=== PATIENT | female | born 1945 | race Two or more races ===

== ENCOUNTER → 2020-06-30 | Outpatient (CLI) | payer MEDICARE ==
--- NOTE | 2020-06-30 15:17 | KCIC ---
Exam: US DPLX ARTR EXTREM LOWER BILAT History: Leg pain Comparison: None. Technique: Grayscale, color, and spectral Doppler ultrasound images of the lower extremity arteries. Findings: No visualized plaque or calcification seen. Peak systolic velocities (cm/s) and waveforms in the lower extremities: Right: Common femoral artery: 193, triphasic Profunda femoris artery: 98, triphasic Proximal superficial femoral artery: 120, biphasic Mid superficial femoral artery: 84, biphasic Distal superficial femoral artery: 105, biphasic Popliteal artery: 56, biphasic Posterior tibial artery: 66 proximally, 88 distally, biphasic Peroneal artery: 96, biphasic Anterior tibial artery: 58, biphasic Dorsalis pedis artery: 68, biphasic Left: Common femoral artery: 139, biphasic Profunda femoris artery: 95, biphasic Proximal superficial femoral artery: 123, biphasic Mid superficial femoral artery: 99, biphasic Distal superficial femoral artery: 97, biphasic Popliteal artery: 92, biphasic Posterior tibial artery: 34 proximally, 108 distally, biphasic Dorsalis pedis artery: 104, biphasic Impression: No evidence of peripheral vascular disease in the lower extremities. Electronically signed by: Katty Borja MD (06/30/2020 3:14 PM) [id number]
== END ==
LOC: KCIC US 09:05
PROVIDERS: ATTEND Family Medicine
DX: M79.604 Pain in right leg (principal); M79.605 Pain in left leg
CPT/HCPCS: 93925

== ENCOUNTER → 2020-07-21 | Outpatient (CLI) | payer MEDICARE ==
--- NOTE | 2020-07-21 14:18 | KCIC ---
MR LUMBAR SPINE WO [id number] Date: 07/21/2020 9:45 AM Indication: LUMBAR RADICULOPATHY. Back pain and BLE pain and numbness. Comparison: None. Technique: Multi-planar multi-weighted magnetic resonance imaging of the lumbar spine was performed w ithout intravenous contrast using the standard lumbar spine protocol. FINDINGS: The lumbar spine is normally aligned. No acute fracture. Mild multilevel degenerative disc desiccatio n and disc height loss. Scattered vertebral body hemangiomas. The conus terminates at a normal level. No abnormal signal is seen within the visualized distal spina l cord. No clumping of intrathecal nerve roots. No soft tissue abnormality in the visualized abdomen or pelvis. T12-L1: No disc bulge. No facet arthropathy. No significant spinal stenosis or neural foraminal narro wing. L1-L2: No disc bulge. No facet arthropathy. No significant spinal stenosis or neural foraminal narrow ing. L2-L3: Disc bulge. Mild facet arthropathy. No significant spinal stenosis. Mild neural foraminal narr owing. L3-L4: Disc bulge. Mild facet arthropathy. Ligamentum flavum thickening. Mild spinal stenosis. Mild b ilateral neural foraminal narrowing. L4-L5: Disc bulge. Mild facet arthropathy. Ligamentum flavum thickening. Moderate to severe spinal st enosis and lateral recess. Mild right and moderate left neural foraminal narrowing. L5-S1: Disc bulge. Moderate facet arthropathy. Ligamentum flavum thickening. Mild spinal stenosis and lateral recess narrowing. Severe right and mild left neural foraminal narrowing. IMPRESSION: Moderate to severe spinal canal stenosis at L4-5. Degenerative changes at the remaining levels as det anisha above. Electronically signed by: Antonio Eric MD (07/21/2020 2:16 PM) [id number]
== END ==
LOC: KCIC MRI 09:00
PROVIDERS: ATTEND Family Medicine
DX: M47.26 Other spondylosis with radiculopathy, lumbar region (principal); M47.818 Spondylosis without myelopathy or radiculopathy, sacral and sacrococcygeal region; M48.07 Spinal stenosis, lumbosacral region
CPT/HCPCS: 72148

== ENCOUNTER → 2020-08-16 | Outpatient (CLI) | payer MEDICARE ==
[~2020-08-16] MED LIST: IOHEXOL 180 MG/ML 10 ML VIAL. ONE; SIMV20TA18 PO; methylPREDNISolone ACETATE 40 MG/ML VIAL. ONE; methylPREDNISolone ACETATE 80 MG/ML VIAL. ONE
--- NOTE | 2020-08-16 10:16 | PDOC1 ---
INITIAL PAIN CONSULT DATE OF SERVICE: DOS: DATE: 08/16/20 TIME: 10:10 CHIEF COMPLAINT: Chief Complaint: Low back and bilateral lower extremity pain HISTORY OF PRESENT ILLNESS: 74-year-old female presents with history of pain low back bilateral lower extremities for many years worse over the past 6 months or so not the result of any specific injury or accident that she is aware but getting worse in the low back bilateral lower extremities posterior gluteus posterior thighs anterior thighs lateral thighs medial thighs posterior calves anterior calf into the feet with cold sensation in the feet as well specially on the left side patient reports stiffness in the leg especially on the right side patient reports no specific injury or accident again has been coming up over time getting worse. Patient describes pain is constant sharp stabbing in the back throbbing and shooting in the lower extremities intermittent with intensity but always present tingling and numbness in the feet and legs as well radiating bilaterally right essentially equal to left patient reported aching and cold as well. Patient has been doing some stretching and strength exercises on her own also taking ibuprofen and Tylenol ibuprofen does help and only for about an hour to 2 hours when she takes it. Patient reports no loss of motor function no bowel or bladder incontinence patient reports it does awaken her from sleep multiple times throughout the night does not affect her bowel or bladder control and does affect her ability to walk and she is not use any assistive devices however to ambulate. Patient rates her disability rating 0-10 10 being the worst is a 7-9 on family home responsibilities 5-6 and recreation 6 with social activity occupation 4-5 with self-care and 1 with life support activities. Patient did have MRI scan lumbar spine July 21, 2020 showing moderate to severe spinal canal stenosis at L4-5 degenerative changes at L3 445 and 5 S1 with disc bulge moderate to severe spinal stenosis mild bilateral neuroforaminal narrowing at L3-4 mild stenosis at L5-S1. PAST MEDICAL HISTORY: PMH: Arthritis PREVIOUS SURGERIES: Past Surgical Hx: Tubal ligation CURRENT MEDICATIONS: Current Meds: Active Scripts Medications Dose Route/Sig Max Daily Dose Days Date Category Simvastatin 20 Mg Tablet 1 Tab PO QHS 08/16/20 Reported FAMILY HISTORY: Family Hx: No major medical problems or conditions that she is aware of SOCIAL HISTORY: Social Hx: Patient drinks alcohol maybe once or twice a week does not smoke does not use any illegal illicit recreational drugs is lives with her spouse lives locally in [facility] reports she is currently retired. REVIEW OF SYSTEMS: ROS: Positive for those items mentioned in history of present illness, all systems are reviewed, otherwise negative ,and are complete full and well-documented on patient's chart. PHYSICAL EXAM: VS: Blood pressure is 160/93 pulse 111 respirations 18 temperature 97.8 F height is 5 feet 4 inches weight is 155 pounds PE: PHYSICAL EXAMINATION: GENERAL: The patient is awake, alert, oriented, appropriate, very pleasant demeanor HEENT: Shows normocephalic, atraumatic. Extraocular movements are intact and symmetrical. Oral cavity: Mucous membranes moist and pink. NECK: Shows anterior throat supple without palpable lymphadenopathy noted. Swallow reflex symmetrical. CHEST: Shows normal on inspection. Breath sounds are clear bilaterally, distant but no rales rhonchi wheezes auscultated. HEART: Shows S1, S2 clear. No murmurs auscultated. ABDOMEN: Soft, nontender, nondistended, obese. No palpable organomegaly is noted. No rebound or guarding demonstrated. BACK: Shows spine grossly in the midline. Normal-appearing cervical lordotic curvature. There is increased thoracic kyphosis, some minor flattening of the lumbar lordotic curvature. No previous surgical scarring noted. Lumbar paraspinous muscles show symmetrical on inspection, on palpation shows some moderate tenderness diffusely throughout the upper, middle and lower distribution of the paraspinous muscles bilaterally and also into the lower thoracic paraspinous musculature, firm and tender, but without specific trigger points, without radiation of pain. The patient has good rotational motion of the lumbar spine, both laterally as well as extension and flexion without significant difficulty. No tenderness over the spinous processes, sacrum or sacroiliac regions. EXTREMITIES: Lower extremities show deep tendon reflexes 1+ in the patellar and tendo calcaneus tendons. Motor exam is 4 on a scale of 5 with right dorsiflexion, extension, quadriceps and hamstring flexion and 4/5 on the left. Peripheral pulses are 1 posterior tibial. No peripheral edema is noted bilaterally. Lower extremities are warm and dry to touch, equal in color and appearance. Straight leg raise noted to be positive bilaterally approximately 40 degrees decreased with knee flexion. Gaenslen's and Prosper's maneuvers are negative bilaterally. The patient is able to stand, stand on toes without significant difficulty or loss of balance walks with a slight normal-appearing gait without any specific favoring of the right or left lower extremity for short distance in the office today, not use any assistive devices such as canes or walkers to ambulate. SKIN: Shows warm and dry, good turgor. No edema. No sores, rashes or bruising throughout. IMPRESSION: Impression: 74-year-old female with long history low back bilateral lower extremity pain worse over the past 6 months or so. MRI scan lumbar spine as noted History of arthritis Plan: Options were discussed with the patient including conservative medical management physical therapies and interventional techniques. Patient would like to pursue interventional techniques we discussed a lumbar epidural steroid injection using description as well as anatomical models described procedure. Risks were discussed including but not limited to: Bleeding, infection, possibility of epidural hematoma and subsequent neurological compromise, dural puncture, headaches, spinal cord and/or nerve damage, side effects of steroid medication, and poor results regarding pain control. Patient understands and wished to proceed. Patient will return to the clinic in approximate 2 weeks for follow-up, was counseled as return appointment activity level and side effects to be aware of. Procedure is lumbar epidural steroid injection under local anesthetic using sterile prep and drape at the L4-5 level using C-arm fluoroscopic guidance in both AP and lateral views medications injected is 120 mg Depo-Medrol + 10 mL preservative-free normal saline and 2 mL contrast- condition at discharge is stable patient tolerated procedure well had no complications. HEATHER MCCARTHY MD August 16, 2020 10:16
== END | disposition home or self-care (01) ==
LOC: PNCL 08:25
PROVIDERS: ATTEND Anesthesiology
DX: M54.5 Low back pain (principal); M79.605 Pain in left leg; M79.604 Pain in right leg; M19.90 Unspecified osteoarthritis, unspecified site; Z98.51 Tubal ligation status; Z98.890 Other specified postprocedural states
CPT/HCPCS: 62323; J1030; J1040; Q9965

== ENCOUNTER → 2020-08-30 | Outpatient (CLI) | payer MEDICARE ==
--- NOTE | 2020-08-30 10:34 | PDOC ---
Progress Note - Pain Clinic Date of Service: DOS: DATE: 08/30/20 TIME: 10:32 Diagnosis: Dx: Lumbar radiculopathy with lumbar degenerative disease and lumbar stenosis History or Present Illness: HPI: 74-year-old female returns to follow-up status post lumbar epidural steroid injection x1. Patient reports about 80% improvement for the first few weeks pain returning now in the low back 1 in the right lower extremity in the posterior gluteus lateral thigh anterior thigh medial thigh but much more tolerable patient reports he is sleeping much better at night now which is a been a big relief for her as she has been was not getting much sleep previously. Patient reports her pain is a 9 on scale 10 is worse over the past week 8 on average 8 its least is an 8 today patient describes as tingling and aching on and off in intensity again better with sitting or laying down worse with walking and standing. Patient reports no new motor or sensory deficits no new bowel or bladder incontinence. Physical Exam: VS: Blood pressure is 154/84 pulse 103 respirations 18 temperature 98.4 F height is 5 foot 4 inches weight is 154 pounds PE: PHYSICAL EXAMINATION: GENERAL: The patient is awake, alert, oriented, appropriate, very pleasant demea nor HEENT: Shows normocephalic, atraumatic. Extraocular movements are intact and symmetrical. Oral cavity: Mucous membranes moist and pink. NECK: Shows anterior throat supple without palpable lymphadenopathy noted. Swallow reflex symmetrical. CHEST: Shows normal on inspection. Breath sounds are clear bilaterally. HEART: Shows S1, S2 clear. No murmurs auscultated. ABDOMEN: Soft, nontender, nondistended. No palpable organomegaly is noted. No rebound or guarding demonstrated. BACK: Shows spine grossly in the midline. Normal-appearing cervical lordotic curvature. There is slightly increased thoracic kyphosis, some flattening of the lumbar lordotic curvature. Lumbar paraspinous muscles show symmetrical on inspection, on palpation shows some moderate tenderness diffusely throughout the upper, middle and lower distribution of the paraspinous muscles without specific trigger points, without radiation of pain. The patient has good rotational motion of the lumbar spine, both laterally as well as extension and flexion without significant difficulty. No tenderness over the spinous processes, sacrum or sacroiliac regions. EXTREMITIES: Lower extremities show deep tendon reflexes 1 in the patellar and tendo calcaneus tendons. Motor exam is 4 on a scale of 5 with right dorsiflexion, extension, quadriceps and hamstring flexion and 4/5 on the left. Peripheral pulses are 1+ posterior tibial. No peripheral edema is noted bilaterally. Lower extremities are warm and dry to touch, equal in color and appearance. SKIN: Shows warm and dry, good turgor. No edema. No sores, rashes or bruising throughout. Procedure: Procedure: Options discussed with patient. Patient chart was reviewed as her current medication regimen updated current review of systems updated today as well. We will proceed with a second in the series lumbar epidural steroid traction stable fluoroscopic guidance. Risks were discussed including but not limited to: Bleeding, infection, possibility of epidural hematoma and subsequent neurological compromise, dural puncture, headaches, spinal cord and/or nerve damage, side effects of steroid medication, and poor results regarding pain control. Patient understands and wished to proceed. Patient return to clinic in approximate 2 weeks for follow-up, was counseled as return appointment activity level and side effects to be aware of. Medication Injected: Med Injected: Procedure is lumbar epidural steroid injection under local anesthetic using moe rile prep and drape at the L4-5 level using C-arm fluoroscopic guidance in both AP and lateral views medications injected is 120 mg Depo-Medrol +10mL preservative-free normal saline and 2 mL contrast- condition at discharge is stable patient tolerated procedure well had no complications. Condition at Discharge: Condition at Discharge: Condition at discharge stable, patient alert procedure well and had no complications. HEATHER MCCARTHY MD August 30, 2020 10:34
--- NOTE | 2020-08-30 10:35 | PDOC4 ---
PROCEDURE Procedure Patient was consented for lumbar epidural steroid injection. Risks were dis cussed including but not limited to: Bleeding, infection, possibility of epidural hematoma and subsequent neurological compromise, dural puncture, headaches, spinal cord and/or nerve damage, side effects of steroid medication, and poor results regarding pain control. Patient understands and wished to proceed. Procedure is lumbar epidural steroid injection under local anesthetic using sterile prep and drape at the L4-5 level using C-arm fluoroscopic guidance in both AP and lateral views medications injected is 120 mg Depo-Medrol +10mL preservative-free normal saline and 2 mL contrast- condition at discharge is stable patient tolerated procedure well had no complications. HEATHER MCCARTHY MD August 30, 2020 10:34
== END | disposition home or self-care (01) ==
LOC: PNCL 09:34
PROVIDERS: ATTEND Anesthesiology
DX: M51.16 Intervertebral disc disorders with radiculopathy, lumbar region (principal); M48.061 Spinal stenosis, lumbar region without neurogenic claudication; Z79.899 Other long term (current) drug therapy
CPT/HCPCS: 62323; J1030; J1040; Q9965

== ENCOUNTER → 2020-09-13 | Outpatient (CLI) | payer MEDICARE ==
--- NOTE | 2020-09-13 10:53 | PDOC ---
Progress Note - Pain Clinic Date of Service: DOS: DATE: 09/13/20 TIME: 10:51 Diagnosis: Dx: Lumbar radiculopathy with lumbar degenerative disc disease and lumbar spinal stenosis History or Present Illness: HPI: 74-year-old female returns for follow-up status post lumbar epidural steroid injections x2. Patient reports about 80% improvement after the first injection about 50% provement after the last injection still some pain in the low back and into the right greater than left lower extremity but present bilaterally in the posterior gluteus lateral thighs anterior thighs medial thighs and medial calves patient reports a 9 on scale 10 is worse over the past week 7 on average/and is a 7 today patient describes the pain as tight and cramping in the low back radiating shooting in the leg. Patient reports no new motor or sensory deficits no new bowel or bladder incontinence or other complaints. Physical Exam: VS: Blood pressure is 149/83 pulse 105 respirations 18 temperature is 98.0 F height is 5 foot 4 inches weight is 143 pounds PE: PHYSICAL EXAMINATION: GENERAL: The patient is awake, alert, oriented, appropriate, very pleasant demeanor HEENT: Shows normocephalic, atraumatic. Extraocular movements are intact and symmetrical. Oral cavity: Mucous membranes moist and pink. Dentition is intact. NECK: Shows anterior throat supple without palpable lymphadenopathy noted. Swallow reflex symmetrical. CHEST: Shows normal on inspection. Breath sounds are clear bilaterally, no ra les or rhonchi. HEART: Shows S1, S2 clear. No murmurs auscultated. ABDOMEN: Soft, nontender, nondistended, obese. No palpable organomegaly is noted. No rebound or guarding demonstrated. BACK: Shows spine grossly in the midline. Normal-appearing cervical lordotic curvature. There is slightly increased thoracic kyphosis, some minor flattening of the lumbar lordotic curvature. Lumbar paraspinous muscles show symmetrical on inspection, on palpation shows some moderate tenderness diffusely throughout the upper, middle and lower distribution of the paraspinous muscles without specific trigger points, without radiation of pain. The patient has good rotational motion of the lumbar spine, both laterally as well as extension and flexion without significant difficulty. EXTREMITIES: Lower extremities show deep tendon reflexes 1 in the patellar and tendo calcaneus tendons. Motor exam is 4 on a scale of 5 with right dorsiflexion, extension, quadriceps and hamstring flexion and 4/5 on the left. Peripheral pulses are 1+ posterior tibial. No peripheral edema is noted bilaterally. Lower extremities are warm and dry. SKIN: Shows warm and dry, good turgor. No edema. No sores, rashes or bruising throughout. Procedure: Procedure: Options were discussed with the patient. Patient chart was reviewed as her current medication regimen updated current review of systems updated today as well. We will proceed with a third in the series lumbar epidural steroid injection stable fluoroscopic guidance. Risks were discussed including but not limited to: Bleeding, infection, possibility of epidural hematoma and subsequent neurological compromise, dural puncture, headaches, spinal cord and/or nerve damage, side effects of steroid medication, and poor results regarding pain control. Patient understands and wished to proceed. Patient will return to clinic in approximate 2 weeks for follow-up, was counseled as return appointment, activity level, and side effects to be aware of. Medication Injected: Med Injected: Procedure is lumbar epidural steroid injection under local anesthetic using sterile prep and drape at the L4-5 level using C-arm fluoroscopic guidance in both AP and lateral views medications injected is 120 mg Depo-Medrol +10mL preservative-free normal saline and 2 mL contrast- condition at discharge is stable patient tolerated procedure well had no complications. Condition at Discharge: Condition at Discharge: Condition at discharge is stable, patient tolerated the procedure well and had no complications. HEATHER MCCARTHY MD Sep 13, 2020 10:53
--- NOTE | 2020-09-13 10:54 | PDOC4 ---
PROCEDURE Procedure Patient was consented for lumbar epidural steroid injection. Risks were dis cussed including but not limited to: Bleeding, infection, possibility of epidural hematoma and subsequent neurological compromise, dural puncture, headaches, spinal cord and/or nerve damage, side effects of steroid medication, and poor results regarding pain control. Patient understands and wished to proceed. Procedure is lumbar epidural steroid injection under local anesthetic using sterile prep and drape at the L4-5 level using C-arm fluoroscopic guidance in both AP and lateral views medications injected is 120 mg Depo-Medrol +10mL preservative-free normal saline and 2 mL contrast- condition at discharge is stable patient tolerated procedure well had no complications. HEATHER MCCARTHY MD Sep 13, 2020 10:54
== END | disposition home or self-care (01) ==
LOC: PNCL 09:42
PROVIDERS: ATTEND Anesthesiology
DX: M51.16 Intervertebral disc disorders with radiculopathy, lumbar region (principal); M48.061 Spinal stenosis, lumbar region without neurogenic claudication; Z79.899 Other long term (current) drug therapy
CPT/HCPCS: 62323; J1030; J1040; Q9965

== ENCOUNTER → 2021-01-12 | Outpatient (CLI) | payer MEDICARE ==
[~2021-01-12] MED LIST changes: +ASPI-630 PO; +CALC600T60 PO; +CYAN500T7 PO; +DOCU-109 PO; +HYDR-2761 PO; -IOHEXOL 180 MG/ML 10 ML VIAL. ONE; +MULT-245 PO; -methylPREDNISolone ACETATE 40 MG/ML VIAL. ONE; -methylPREDNISolone ACETATE 80 MG/ML VIAL. ONE
[2021-01-12 13:17] LABS: BASO # 0.1 x10^3/uL (0.0-0.2); BASO % 1 % (0-3); EOS % 1 % (0-3); HEMATOCRIT 39.5 % (36.0-47.0); HEMOGLOBIN 13.2 g/dL (12.0-15.5); LYMPH # 2.7 x10^3/uL (1.0-4.8); LYMPH % 36 % (24-48); MEAN CORPUSCULAR HEMOGLOBIN 31 pg (25-35); MEAN CORPUSCULAR HGB CONC 33 g/dL (31-37); MEAN CORPUSCULAR VOLUME 92 fL (79-100); MONO # 0.5 x10^3/uL (0.0-1.1); MONO % 6 % (0-9); NEUT # 4.3 x10^3/uL (1.8-7.7); NEUT % 57 % (31-73); PLATELET COUNT 288 x10^3/uL (140-400); RED CELL DISTRIBUTION WIDTH 13.3 % (11.5-14.5); WHITE BLOOD COUNT 7.6 x10^3/uL (4.0-11.0)
[2021-01-12 13:32] LABS: ALBUMIN 3.9 g/dL (3.4-5.0); ALBUMIN/GLOBULIN RATIO 1.2 (1.0-1.7); CALCIUM 9.7 mg/dL (8.5-10.1); CREATININE 0.7 mg/dL (0.6-1.0); GFR 81.8; POTASSIUM 3.8 mmol/L (3.5-5.1); TOTAL BILIRUBIN 0.7 mg/dL (0.2-1.0); TOTAL PROTEIN 7.2 g/dL (6.4-8.2)
--- NOTE | 2021-01-16 11:40 | HP ---
ADMIT DATE: 01/18/2021 HISTORY OF PRESENT ILLNESS: The patient is a pleasant 75-year-old, who is having difficulty with back pain and pain in both of her legs. The right side is worse than the left. The pain is in the anterior thighs and radiates to the knees. Her pain is 10/10 at its worst. Activity and walking increase her pain. Sitting helps her, but it is still painful. She has been taking ibuprofen. She had 3 lumbar epidural steroid injections, each only helped her for about a week. CURRENT MEDICATIONS: Ropinirole, aspirin, vitamin B12, calcium, multivitamin, Tylenol, simvastatin, ibuprofen. ALLERGIES: No known drug allergies. PAST MEDICAL HISTORY: Arthritis. PAST SURGICAL HISTORY: Hysterectomy. FAMILY HISTORY: Diabetes, heart disease. SOCIAL HISTORY: , nonsmoker. Drinks alcohol 1-2 times per week. REVIEW OF SYSTEMS: A 12-point review of systems was performed and is noncontributory except that mentioned above. PHYSICAL EXAMINATION: GENERAL: Alert, pleasant, in no acute distress. HEENT: Head normocephalic, atraumatic. SKIN: Warm and dry. MUSCULOSKELETAL: Lumbar paraspinal muscle bulk is normal. Restricted range of motion of the lumbar spine, [id number] tenderness of the lower lumbar spine with palpation, and normal range of motion of the lower extremities bilaterally. EXTREMITIES: No clubbing, cyanosis, or edema. NEUROLOGIC: Alert and oriented x3. Strength is 4+/5 in the bilateral lower extremities. Sensory was intact to light touch in the lower extremities bilaterally. Reflexes were trace and symmetric in the lower extremities bilaterally, negative straight leg raising bilaterally, forward stooped shuffling gait. IMAGING: I again reviewed her lumbar MRI scan from 07/2020. On that study, there is severe lumbar spinal stenosis present at L4-L5 as well as moderate lateral recess stenosis, especially on the right side at L5-S1. ASSESSMENT AND PLAN: At this point, she should undergo lumbar decompressive surgery at L4-L5 bilaterally and on the right at L5-S1. I discussed with her the rationale on the surgery as well as the risk and the expected postoperative course. Her daughter was present and I answered all of their questions. I spoke with them carefully about the risk and expected postoperative course and limitations. They understand and would like to proceed. SANDRA/ILIANA DR: SANDRA/pattie TID: [id number]
== END ==
LOC: SURGPAT 12:32
PROVIDERS: ATTEND Neurological Surgery
DX: Z01.818 Encounter for other preprocedural examination (principal); M48.062 Spinal stenosis, lumbar region with neurogenic claudication; M54.17 Radiculopathy, lumbosacral region
CPT/HCPCS: 36415; 80053; 85025; 87641

== ENCOUNTER → 2021-01-16 | Outpatient (CLI) | payer MEDICARE | LOC: LAB 09:25 | PROVIDERS: ATTEND Neurological Surgery | DX: Z01.812 Encounter for preprocedural laboratory examination (principal); Z20.822 Contact with and (suspected) exposure to COVID-19; M48.062 Spinal stenosis, lumbar region with neurogenic claudication; M54.17 Radiculopathy, lumbosacral region | CPT/HCPCS: U0003; U0005 ==

== ENCOUNTER 2021-01-18 09:57 | Day surgery (SDC) | payer MEDICARE ==
[2021-01-12 12:56] VITALS: BP 173/81
[~2021-01-18] VITALS: Ht 157.5 cm; Wt 69.3 kg
[~2021-01-18 09:57] MED LIST changes: +BUPIVACAINE-EPI 0.5%-1:200000 MPF 30 ML VIAL. ONE; +DEXAMETHASONE SOD PHOS 4 MG/ML VIAL ONE; -DOCU-109 PO; +GELATIN SPONGE SIZE 100. ONE; -HYDR-2761 PO; +HYDROmorphone 2 MG/ML VIAL IVP PRN; +IV RINGERS,LACTATED 1000ML 1,000 ML IV SCH; +KETOROLAC 60 MG/2 ML VIAL. ONE; +LIDOCAINE 2% PF 5 ML VIAL. ONE; +MORPHINE SULFATE 2 MG/ML INJ. IVP PRN; +ONDANSETRON PF 4 MG/2 ML VIAL. ONE; +PHENYLEPHRINE in 0.9% NACL PF 1 MG/10 ML SYRINGE. IV ONE; +PROCHLORPERAZINE 10 MG/2 ML VIAL. IVP PRN; +PROPOFOL 10 MG/ML (20ML) VIAL. IV ONE; +PROPOFOL 50 ML IV ONE; +REMIFENTANIL 2 MG VIAL. IV ONE; +ROCURONIUM 50 MG/5 ML VIAL. ONE; +THROMBIN TOPICAL 20,000 UNIT SPRAY.SYRN KIT TP ONE; +ceFAZolin SODIUM 1 GM in IV NORMAL SALINE 1000ML BAG 1,000 ML IRR ONE; +fentaNYL PF VIAL 100 MCG/2 ML VIAL IVP PRN
[2021-01-18] MEDS ORDERED: PHENYLEPHRINE 10 MG/ML VIAL. ONE ×2 (10:36→15:39)
[2021-01-18] MEDS ORDERED: fentaNYL PF VIAL 100 MCG/2 ML VIAL ONE (10:44)
[2021-01-18] MEDS ORDERED: NEOSTIGMINE METHYLSULFATE 5 MG/5 ML SYRINGE. ONE (14:25)
[2021-01-18] MEDS ORDERED: GLYCOPYRROLATE 1 MG/5 ML VIAL. ONE (14:25)
[2021-01-18] MEDS ORDERED: PROPOFOL 50 ML IV ONE (15:05)
[2021-01-18] MEDS ORDERED: DESFLURANE > 120 MINUTES IH ONE (15:40)
[2021-01-18] MEDS ORDERED: DOCU-109 PO (15:50)
[2021-01-18] MEDS ORDERED: HYDR-2761 PO (15:50)
--- NOTE | 2021-01-18 15:52 | DISCH ---
DISCHARGE INSTRUCTIONS Condition on Discharge Condition on Discharge: Stable Activity After Discharge Activity Instructions for Disc: Activity as tolerated, Avoid exertion Other activity instructions: no driving for a week Bathing Instructions: Shower-keep dressing dry, No Tub Bath until see Lifting Instructions after Dis: No heavy lifting, No pulling or pushing, Do not lift >10 pounds Diet after Discharge Additional Diet Restrictions: resume home diet Wound Incision Care Wound/Incision Care: Ice to area for comfort Other wound/incision instructi: may remove dressing in 48 hours if dry, leave steri strips in place Contacting the after DC Call your doctor for: Concerns you may have Follow-Up Follow up with: Dr. Clements's nurse in 2 weeks [phone] SRAVANI CLEMENTS MD Jan 18, 2021 15:52
[2021-01-18] MEDS ORDERED: EPINEPHrine 1 MG/ML VIAL ONE (16:01)
--- NOTE | 2021-01-18 16:13 | OP ---
DATE OF SURGERY: 01/18/2021 PREOPERATIVE DIAGNOSIS: Lumbar spinal stenosis, L4-5 and L5-S1, right. POSTOPERATIVE DIAGNOSIS: Lumbar spinal stenosis, L4-5 and L5-S1, right. OPERATION PERFORMED: Bilateral hemilaminotomies with decompression of dura and nerve root, L4-5 and L5-S1, right. The operation was done with EMG monitoring, SSEP monitoring, fluoroscopy, microscopic dissection. SPECIMEN: Decompression. SURGEON: Raul Ewing M.D. CHUTE PULLER: KEYUR Rosa, assisted with the surgery. She assisted with the exposure, the multilevel microdecompression as well as the closure. OPERATIVE INDICATIONS: The patient is a pleasant 75-year-old woman who developed intractable back and right greater than left leg pain, which failed conservative measures. On imaging studies, she had the above-mentioned findings and I recommended lumbar surgery. I spoke with her about the surgery and the risks and she understood and wished to go ahead. DESCRIPTION OF PROCEDURE: Following general endotracheal anesthesia, the patient was positioned prone on the Jono table. Lumbar region prepped and draped in the standard fashion. BHARATI hose and AV impulse boots were applied for DVT prophylaxis. A microscope was draped, fluoroscopy was draped and brought into the field. Monitoring was established. Ancef 2 grams given less than one hour prior to initiation of surgery. Using fluoroscopic guidance, incision was made extending from L4 to S1. I dissected down through skin and subcutaneous tissue, reflected the paraspinal muscles to the right and placed a [place] microdisk retractor. I confirmed my positions fluoroscopically. I brought in the microscope and the remainder of surgery done with the microscope using microscopic technique. I burred down a generous hemilaminotomy with a high speed air drill at L4-5. I peeled down and trimmed away ligamentum flavum, exposing the dura and the exiting root and performed a generous partial foraminotomy. I worked superiorly and inferiorly and laterally and I fully decompressed the entire region, and used bone wax for any bone bleeding as well as bipolar cautery where necessary. I palpated the disc, which was very firm. I then moved down to L5-S1 and performed the identical operation on the right side at L5-S1. Following this, I removed the retractor and obtained hemostasis in the muscle. I then switched to the contralateral side at L4-5. Then, I created an exposure, incised the lumbodorsal fascia, reflected the paraspinal muscles, placing the [place] microdisk retractor. Again, I confirmed my position fluoroscopically and again through the microscope with a high speed air drill, I burred down a generous hemilaminotomy and then trimmed and peeled away the ligamentum flavum and then enlarged my laminotomy inferiorly performing a generous partial foraminotomy. I fully decompressed the entire region. I did palpate the disc on this side and again it was very firm and no discectomy was warranted. I used bone wax judiciously for any bone bleeding. At this point, the roots were very well decompressed. I irrigated copiously with antibiotic solution. I then removed the retractor, obtained perfect hemostasis, closed the fascia and the subcutaneous tissue in layers and then the skin was closed with a 4-0 subcuticular stitch. I felt the surgery went very well. ERNST DR: Angelique TID: [id number] ABRAHAM
[2021-01-18] MEDS ORDERED: HYDROcodone/APAP 5/325MG 1 TAB TABLET PO ONE (16:15)
--- NOTE | 2021-01-18 16:54 | PREOP HP ---
DATE OF SERVICE: 01/18/2021 HISTORY OF PRESENT ILLNESS: The patient is a pleasant 75-year-old, who is having difficulty with back pain and pain in both of her legs. The right side is worse than the left. The pain is in the anterior thighs and radiates to the knees. Her pain is 10/10 at its worst. Activity and walking increase her pain. Sitting helps her, but it is still painful. She has been taking ibuprofen. She had 3 lumbar epidural steroid injections, each only helped her for about a week. CURRENT MEDICATIONS: Ropinirole, aspirin, vitamin B12, calcium, multivitamin, Tylenol, simvastatin, ibuprofen. ALLERGIES: No known drug allergies. PAST MEDICAL HISTORY: Arthritis. PAST SURGICAL HISTORY: Hysterectomy. FAMILY HISTORY: Diabetes, heart disease. SOCIAL HISTORY: , nonsmoker. Drinks alcohol 1-2 times per week. REVIEW OF SYSTEMS: A 12-point review of systems was performed and is noncontributory except that mentioned above. PHYSICAL EXAMINATION: GENERAL: Alert, pleasant, in no acute distress. HEENT: Head normocephalic, atraumatic. SKIN: Warm and dry. MUSCULOSKELETAL: Lumbar paraspinal muscle bulk is normal. Restricted range of motion of the lumbar spine, [id number] tenderness of the lower lumbar spine with palpation, and normal range of motion of the lower extremities bilaterally. EXTREMITIES: No clubbing, cyanosis, or edema. NEUROLOGIC: Alert and oriented x3. Strength is 4+/5 in the bilateral lower extremities. Sensory was intact to light touch in the lower extremities bilaterally. Reflexes were trace and symmetric in the lower extremities bilaterally, negative straight leg raising bilaterally, forward stooped shuffling gait. IMAGING: I again reviewed her lumbar MRI scan from 07/2020. On that study, there is severe lumbar spinal stenosis present at L4-L5 as well as moderate lateral recess stenosis, especially on the right side at L5-S1. ASSESSMENT AND PLAN: At this point, she should undergo lumbar decompressive surgery at L4-L5 bilaterally and on the right at L5-S1. I discussed with her the rationale on the surgery as well as the risk and the expected postoperative course. Her daughter was present and I answered all of their questions. I spoke with them carefully about the risk and expected postoperative course and limitations. They understand and would like to proceed. SANDRA/ILIANA DR: SANDRA/pattie TID: [id number] MTDD
[2021-01-18 17:30] VITALS: BP 154/78
--- NOTE | 2021-01-23 18:06 | PATHOLOGY ---
[facility] Accession Number: [id number] . 01 Material submitted: . vertebral column - LUMBAR DECOMPRESSION . 01 Clinical history: . BACK PAIN, LUMBAR STENOSIS, RADICULOPATHY LUMBAR MICRODECOMPRESSION L4-5, BILATERAL, L5-S1 RIGHT . 02 Diagnosis: Segments of fibrocartilaginous tissue and bone, lumbar decompression: - Degenerative changes of fibrocartilaginous tissue. LBQ 01/23/2021 1353 Local . 02 Comment: There is no evidence of an acute inflammatory process or malignancy. (JPM/db; 01/23/2021) . 02 Electronically signed: . Alton Blackmon MD, Pathologist NPI- [id number] . 01 Gross description: . The specimen is received in formalin, labeled "Linda Pereira, lumbar decompression". Received are multiple segments of pink-aguirre fibrous tissue admixed with gritty fragments of bone measuring 4.8 x 4.2 x 0.9 cm in aggregate dimensions. The specimen is submitted representatively in cassette A1, following light decalcification. (CAA; 01/20/2021) QAC/QAC 01/20/2021 1440 Local . 02 Pathologist provided ICD-10: M51.36 . 02 CPT . 048961, [id number] Specimen Comment: A courtesy copy of this report has been sent to [phone], [phone] Specimen Comment: [id number] Specimen Comment: Report sent to / DR JAMISON Specimen Comment: A duplicate report has been generated due to demographic updates. Performed at: [address], [place], [place] [id number] MD Flo Johnson MD Phone: [phone] Performed at: 02 [facility] [address], [place] [id number] MD Alton Blackmon MD Phone: [phone]
== END 2021-01-18 18:00 | disposition home or self-care (01) ==
LOC: SURG 09:57
PROVIDERS: ATTEND Neurological Surgery
DX: M48.062 Spinal stenosis, lumbar region with neurogenic claudication (principal); M54.17 Radiculopathy, lumbosacral region; M19.90 Unspecified osteoarthritis, unspecified site; Z79.82 Long term (current) use of aspirin; Z79.899 Other long term (current) drug therapy; Z98.890 Other specified postprocedural states; Z72.89 Other problems related to lifestyle; Z82.49 Family history of ischemic heart disease and other diseases of the circulatory system; Z83.3 Family history of diabetes mellitus; Z90.710 Acquired absence of both cervix and uterus
CPT/HCPCS: 63047; 63048; 88304; 88311; 97161; 97530; A4213; A4364; A4556; A4930; A6254; A6258; J0690; J1100; J1885; J2370; J2405; J2704; J2710; J3010; J3490; J7030; 76000; A4222; A4452; A4657; J0171

== ENCOUNTER → 2021-04-27 | Outpatient (CLI) | payer MEDICARE ==
[~2021-04-27] MED LIST changes: -BUPIVACAINE-EPI 0.5%-1:200000 MPF 30 ML VIAL. ONE; -DEXAMETHASONE SOD PHOS 4 MG/ML VIAL ONE; +DOCU-109 PO; -GELATIN SPONGE SIZE 100. ONE; +HYDR-2761 PO; -HYDROmorphone 2 MG/ML VIAL IVP PRN; -IV RINGERS,LACTATED 1000ML 1,000 ML IV SCH; -KETOROLAC 60 MG/2 ML VIAL. ONE; -LIDOCAINE 2% PF 5 ML VIAL. ONE; -MORPHINE SULFATE 2 MG/ML INJ. IVP PRN; -ONDANSETRON PF 4 MG/2 ML VIAL. ONE; -PHENYLEPHRINE in 0.9% NACL PF 1 MG/10 ML SYRINGE. IV ONE; -PROCHLORPERAZINE 10 MG/2 ML VIAL. IVP PRN; -PROPOFOL 10 MG/ML (20ML) VIAL. IV ONE; -PROPOFOL 50 ML IV ONE; -REMIFENTANIL 2 MG VIAL. IV ONE; -ROCURONIUM 50 MG/5 ML VIAL. ONE; -THROMBIN TOPICAL 20,000 UNIT SPRAY.SYRN KIT TP ONE; -ceFAZolin SODIUM 1 GM in IV NORMAL SALINE 1000ML BAG 1,000 ML IRR ONE; -fentaNYL PF VIAL 100 MCG/2 ML VIAL IVP PRN
--- NOTE | 2021-04-27 09:29 | KCIC ---
EXAM: Pelvis and right hip, 2 views. HISTORY: Pain. COMPARISON: None. FINDINGS: A frontal view of the pelvis and frog-leg view the right hip are obtained. There is severe right hip joint space narrowing with degenerative subchondral sclerosis, subchondral cyst formation a nd marginal spurring. There is flattening of the superior articular aspect of the acetabulum and femo ral head. There is mild degenerative change involving the visualized lower lumbar spine, primarily at L5-S1. There are suspected small calcified uterine fibroids. IMPRESSION: 1. Severe right hip osteoarthritis with associated mild flattening of the articular aspect of the estella tabulum and femoral head due to cortical collapse. 2. No acute osseous finding. Electronically signed by: Aleja Kurtz MD (04/27/2021 9:27 AM) [id number]
== END ==
LOC: KCIC 08:57
PROVIDERS: ATTEND Neurological Surgery
DX: M16.11 Unilateral primary osteoarthritis, right hip (principal); M47.817 Spondylosis without myelopathy or radiculopathy, lumbosacral region; M79.604 Pain in right leg
CPT/HCPCS: 73501

== ENCOUNTER → 2021-05-02 | Outpatient (CLI) | payer MEDICARE ==
[~2021-05-02] MED LIST changes: +BUPIVACAINE MPF 0.5% 10 ML VIAL. INT ART ONE; +IOHEXOL 300 MG/ML 50 ML VIAL. INT ART ONE; +LIDOCAINE 1% Multi-Dose 20 ML VIAL. ID ONE; +methylPREDNISolone ACETATE 40 MG/ML VIAL. INT ART ONE
--- NOTE | 2021-05-02 14:22 | KCIC ---
EXAM: Right hip joint injection WITH Fluoroscopic guidance DATE: 05/02/2021 12:32 PM CLINICAL HISTORY: Rt hip pain, DJD Rt hip. COMPARISON: 04/27/2021 TECHNIQUE: The patient was informed of the indications and alternatives for this procedure as well as risks and benefits. No immediate contraindication identified. The patient provided informed, written consent. Laterality was confirmed by the entire team following a time out. Following initial Right hip joint localization, a suitable area was sterilely prepped and draped. Loc al anesthesia was administered with 1% xylocaine. With intermittent fluoroscopic observation, a 22-ga uge spinal needle was advanced into the Right hip joint sheath/capsule with confirmation of intra-syn ovial position with infusion of less than 1 cc iodinated contrast. Subsequent infusion 80 mg Depo-Med rol, 4 cc xylocaine 1% and 4 cc bupivacaine 0.5%. Hemostasis with local pressure. Local clinical exam negative for immediate complication. Patient informed re local potential signs or symptoms that may indicate need to return to ER/Ordering physician for further evaluation. Patient informed re precautionary measures after intra-synovial in jection of anesthetic. Patient informed re potential for short term increase local symptomatology due to steroid flare. Patient expressed understanding. Performing Physicians: Dr. Jah Nassar Blood Loss: 0 cc Pre-procedural Pain Scale: 8-9 Post-procedural Pain Scale: 4-5 Total Fluoroscopy time: 3 seconds Total spot images taken: 0 Total last image hold images taken: 1 IMPRESSION: Successful intra-synovial injection Right hip joint with steroid and anesthetic per clinical request. Electronically signed by: Jas Nassar MD (05/02/2021 2:19 PM) [id number] CUSTOM FIELD 1
== END | disposition home or self-care (01) ==
LOC: KCIC 12:19
PROVIDERS: ATTEND Physical Medicine & Rehabilitation
DX: M16.11 Unilateral primary osteoarthritis, right hip (principal); Z98.51 Tubal ligation status; Z98.890 Other specified postprocedural states; Z79.899 Other long term (current) drug therapy; Z79.82 Long term (current) use of aspirin; Z72.89 Other problems related to lifestyle
CPT/HCPCS: 20610; 77002; J1030; J3490; Q9967

== ENCOUNTER → 2021-07-03 | Outpatient (CLI) | payer MEDICARE ==
[~2021-07-03] MED LIST changes: +BUPIVACAINE MPF 0.5% 10 ML VIAL. IJ ONE; -BUPIVACAINE MPF 0.5% 10 ML VIAL. INT ART ONE; +CONTRAST GIVEN. MC PRN; +TRIAMCINOLONE PRES.FREE 40 MG/ML VIAL. INT ART ONE; -methylPREDNISolone ACETATE 40 MG/ML VIAL. INT ART ONE
--- NOTE | 2021-07-03 09:40 | KCIC ---
EXAM: Right hip joint injection WITH Fluoroscopic guidance DATE: 07/03/2021 12:00 AM CLINICAL HISTORY: Reason: / Spl. Instructions: / History: COMPARISON: None pertinent TECHNIQUE: The patient was informed of the indications and alternatives for this procedure as well as risks and benefits. No immediate contraindication identified. The patient provided informed, written consent. Laterality was confirmed by the entire team following a time out. Following initial Right hip joint localization, a suitable area was sterilely prepped and draped. Loc al anesthesia was administered with 1% xylocaine. With intermittent fluoroscopic observation, a 22-ga uge spinal needle was advanced into the Right hip joint sheath/capsule. Initially extra-articular pos itioning of the spinal needle. After repositioning there was confirmation of intra-synovial position with infusion of less than 1 cc iodinated contrast. Subsequent infusion 80 mg Kenalog, 3 mL lidocaine 1 percent, 3 mL bupivacaine 0.5 percent. Hemostasis with local pressure. Local clinical exam negativ e for immediate complication. Patient informed re local potential signs or symptoms that may indicate need to return to ER/Ordering physician for further evaluation. Patient informed re precautionary measures after intra-synovial in jection of anesthetic. Patient informed re potential for short term increase local symptomatology due to steroid flare. Patient expressed understanding. Performing Physicians: Dr. Jah Nassar Blood Loss: 0 cc Patient noted slight improvement in pain following joint injection. Total Fluoroscopy time: 12 seconds Total images saved: 2 IMPRESSION: Successful intra-synovial injection Right hip joint with steroid and anesthetic per clinical request . Electronically signed by: Jas Nassar MD (07/03/2021 9:38 AM) [id number]
== END | disposition home or self-care (01) ==
LOC: KCIC 08:21
PROVIDERS: ATTEND Physical Medicine & Rehabilitation
DX: M16.11 Unilateral primary osteoarthritis, right hip (principal); G89.29 Other chronic pain; M25.551 Pain in right hip; Z79.82 Long term (current) use of aspirin; Z79.899 Other long term (current) drug therapy; Z98.51 Tubal ligation status; Z98.890 Other specified postprocedural states; Z72.89 Other problems related to lifestyle
CPT/HCPCS: 20610; 77002; J3301; J3490; Q9967

== ENCOUNTER → 2021-08-14 | Outpatient (CLI) | payer MEDICARE ==
[~2021-08-14] MED LIST changes: -BUPIVACAINE MPF 0.5% 10 ML VIAL. IJ ONE; -CONTRAST GIVEN. MC PRN; -IOHEXOL 300 MG/ML 50 ML VIAL. INT ART ONE; -LIDOCAINE 1% Multi-Dose 20 ML VIAL. ID ONE; -TRIAMCINOLONE PRES.FREE 40 MG/ML VIAL. INT ART ONE
--- NOTE | 2021-08-14 13:29 | KCIC ---
CT right lower extremity without contrast HISTORY: Chronic right hip pain osteoarthrosis Axial helical images of the right hip were obtained without contrast and axial coronal and sagittal r econstruction was performed. FINDINGS: There is marked degenerative changes right hip with complete loss of joint space superiorly and with significant subchondral cyst formation in the acetabulum and in the superior femoral head. There is a lso mild marginal spurring. There is no lytic destructive changes. There is no significant joint effu aurelio. IMPRESSION: 1. Marked chronic degenerative changes of the right hip suggesting erosive osteoarthrosis. 2. No acute findings. End impression PQRS Compliance Statement: One or more of the following individualized dose reduction techniques were utilized for this examinat ion: 1. Automated exposure control 2. Adjustment of the mA and/or kV according to patient size 3. Use of iterative reconstruction technique Electronically signed by: Mark Eckert III, MD (08/14/2021 1:26 PM) [facility]
== END ==
LOC: KCIC CT 09:41
PROVIDERS: ATTEND Orthopaedic Surgery
DX: M16.11 Unilateral primary osteoarthritis, right hip (principal); M76.891 Other specified enthesopathies of right lower limb, excluding foot; M85.68 Other cyst of bone, other site
CPT/HCPCS: 73700